=== PATIENT | female | born 1975 | race Caucasian/White ===

== ENCOUNTER 2016-12-29 11:16 | Emergency (ER) ==
[2016-12-29 11:23] VITALS: BP 127/55; TEMP 99.4; BMI 46.4
--- NOTE | 2016-12-29 12:03 | ED.PDOC ---
General ED Provider: Dr. RAGHAVENDRA MCKENZIE Chief Complaint: Hand Pain/Injury Stated Complaint: fell on outstretched hand when startled by a snapping mouse trap Time Seen by Physician: 12:00 Mode of Arrival: Walk-In Information Source: Patient Primary Care Provider: SHIRLEY MCKEE Nursing and Triage Documentation Reviewed and Agree: Yes Musculoskeletal Complaint Exam - Hand/Wrist Complaint/Exam Location of Pain: Reports: Right, Hand, Digit #1 Mechanism of Injury: Reports: Trauma Onset/Duration: 1 hour Symptoms Are: Still present Onset of Pain: Reports: Immediate Initial Severity: Severe Current Severity: Moderate Location: Reports: Discrete Character: Reports: Throbbing Alleviating: Reports: Rest Aggravating: Reports: Movement (palpation) Related History: Reports: Occupational injury (fell at work when startled by mousetrap snapping) Dominant Hand: Right Related Surgical History: Reports: None Hand/Wrist Findings: Present: Swelling (very slight swelling and moderate tenderness to palpation of base of right ahdn, palmar aspect) Tenderness: Present: Metacarpal Compartment Syndrome Risk Factors: Present: Pain Differential Diagnoses: Contusion, Closed Fracture Review of Systems - Review Of Systems Constitutional: Reports: No symptoms Musculoskeletal: Reports: Muscle pain (base of right hand) Skin: Reports: No symptoms Neurological: Reports: No symptoms All Other Systems: Reviewed and Negative Past Medical History - Past Medical History Previously Healthy: Yes Endocrine: Reports: Dyslipidemia Cardiovascular: Reports: Hypertension Respiratory: Reports: None Hematological: Reports: None Gastrointestinal: Reports: GERD Genitourinary: Reports: None Neuro/Psych: Reports: None Musculoskeletal: Reports: None Cancer: Reports: None Last Menstrual Period: 11/30/16 - Surgical History General Surgical History: Reports: None - Family History Family History: Reports: Unknown - Social History Smoking Status: Never smoker Hx Substance Use: No Alcohol Screening: None Lives: Alone - Immunizations Tetanus Shot up to Date: No Influenza Vaccine within 12 Months: No Pneumococcal Vaccine up to Date: No Physical Exam - Physical Exam Appearance: Well-appearing Ill-appearing: None Pain Distress: Moderate Musculoskeletal: Normal strength, ROM intact (tender to palpation palmar side of base of right hand over 3rd & 4th MCs. No palpable deformity), Edema (mild swelling of base of right hand, palmar side) Skin: Warm, Dry, Normal color Neurological: Sensation intact, Motor intact, Reflexes intact, Cranial nerves intact, Alert, Oriented Psychiatric: Affect appropriate, Mood appropriate Interpretation - Radiology Interpretation Radiology Interpretation By: Radiologist Radiology Results: Negative Exam Interpreted: Other Xray Comments: Right hand no fracture or dislocation Critical Care Note - Critical Care Note Total Time (mins): 0 Course - Course Orders, Labs, Meds: Orders Category Date Time Status HAND, RIGHT 3 VIEWS Stat RADS 12/29/16 12:03 Completed Vital Signs: Temp Pulse Resp BP Pulse Ox 12/29/16 11:17 99.4 F 100 H 20 127/55 L 98 Departure - Departure Time of Disposition: 13:29 Disposition: HOME SELF-CARE Discharge Problem: Contusion of right hand Instructions: Contusion in Adults (ED) Condition: Good Pt referred to PMD for follow-up: No (see doctor if no better in one week) Additional Instructions: Avid heavy lifting, pushing, or pulling with right hand for one week Allergies/Adverse Reactions: Allergies No Known Allergies Allergy (Unverified 12/29/16 11:23) Home Medications: Ambulatory Orders Clonidine HCl 0.1 mg PO PRN PRN 12/29/16 Hydrochlorothiazide 25 mg PO DAILY 12/29/16 Lisinopril 10 mg PO DAILY 12/29/16 Lovastatin [Mevacor] 20 mg PO BEDTIME 12/29/16 Multivit with Calcium,Iron,Min [Women's Daily Formula] 1 each PO DAILY 12/29/16 Norethindrone-Mestranol [Necon] 1 each PO DAILY 12/29/16 Ranitidine HCl 300 mg PO DAILY 12/29/16 Disposition Discussed With: Patient
--- NOTE | 2016-12-29 12:40 | DI ---
EXAM: Right hand three-view HISTORY: Fall on outstretched hand COMPARISON: None FINDINGS: No fracture or dislocation. 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 N o focal soft tissue abnormality. IMPERSSION: 1. No fracture or dislocation. 2. Mild osteoarthritis.
== END 2016-12-29 13:39 | disposition home or self-care (01) ==
LOC: ED 11:16
DX: S60.221A Contusion of right hand, initial encounter (principal); W19.XXXA Unspecified fall, initial encounter; Y99.0 Civilian activity done for income or pay
CPT/HCPCS: 99282